=== PATIENT | female | born 1965 | race African-American/Black ===

== ENCOUNTER 2017-09-11 15:48 | Inpatient (IN) | payer OTHER ==
[2017-09-11 17:48] VITALS: BMI 28.0
--- NOTE | 2017-09-11 21:01 | HP ---
CIWA Score - CIWA Score Nausea/Vomitin (vomiting x 2) Muscle Tremors: 4-Moderate,w/Arms Extend Anxiety: 4-Mod. Anxious/Guarded Agitation: 3 Paroxysmal Sweats: 2 Orientation: 0-Oriented Tacttile Disturbances: 0-None Auditory Disturbances: 0-None Visual Disturbances: 0-None Headache: 2-Mild CIWA-Ar Total Score: 18 Admission ROS S - HPI Chief Complaint: Alcohol withdrawal symptoms Allergies/Adverse Reactions: Allergies Allergy/AdvReac Type Severity Reaction Status Date / Time fish derived [Fish derived] Allergy Mild Rash Verified 09/11/17 22:05 History of Present Illness: 52 years old female with a 12 years history of alcohol dependence is seeking admission to detox. Patient has been in previous detox and reports 5 years of sobriety. She has medical history of HIV+, HTN, GERD, asthma, herpes, anemia, right shoulder tendonitis and depression. She denies suicide attempt and suicidal ideation at this time. Exam Limitations: No Limitations - Ebola screening Have you traveled outside of the country in the last 21 days: No Have you had contact with anyone from an Ebola affected area: No Have you been sick,other than usual withdrawal symptoms: No Do you have a fever: No - Review of Systems Constitutional: Loss of Appetite, Malaise, Night Sweats EENT: reports: Blurred Vision Respiratory: reports: No Symptoms reported Cardiac: reports: No Symptoms Reported GI: reports: Diarrhea (x 3), Nausea, Poor Appetite, Poor Fluid Intake, Vomiting (x 2), Abdominal cramping : reports: No Symptoms Reported Musculoskeletal: reports: Joint Pain, Muscle Pain Integumentary: reports: Dryness, Flushing Neuro: reports: Headache, Tingling, Tremors Endocrine: reports: No Symptoms Reported Hematology: reports: Anemia Psychiatric: reports: Orientated x3, Anxious, Depressed Other Systems: Reviewed and Negative Patient History - Patient Medical History Hx Anemia: Yes (Not on medication) Hx Asthma: Yes (Not on medication) Hx Chronic Obstructive Pulmonary Disease (COPD): No Hx Cancer: No Hx Cardiac Disorders: No Hx Congestive Heart Failure: No Hx Hypertension: Yes (Lisinopril, HCTZ) Hx Hypercholesterolemia: No Hx Pacemaker: No HX Cerebrovascular Accident: No Hx Seizures: No Hx Dementia: No Hx Diabetes: No Hx Gastrointestinal Disorders: Yes (GERD - Not on medication) Hx Liver Disease: No Hx Genitourinary Disorders: No Hx Sexually Transmitted Disorders: Yes ( GENITAL HERPES) Hx Renal Disease (ESRD): No Hx Thyroid Disease: No Hx Human Immunodeficiency Virus (HIV): Yes (Since 1996 - [facility]) Hx Hepatitis C: No Hx Depression: Yes (Not on medication) Hx Suicide Attempt: No (Denies suicide attempt and suicidal ideation at this time) Hx Bipolar Disorder: No Hx Schizophrenia: No Other Medical History: Right shoulder tendonitis - Not on medication - Patient Surgical History Past Surgical History: No - PPD History Previous Implant?: Yes Documented Results: Negative w/o proof Implanted On Prior [facility] Admission?: Yes Date: 12/08/11 Results: 0MM PPD to be Administered?: Yes - Reproductive History Patient is a Female of Child Bearing Age (11 -55 yrs old): Yes Last Menstrual Period: 06/02/16 LMP comment: Menopausal Patient : No - Smoking Cessation Smoking history: Current every day smoker Have you smoked in the past 12 months: Yes Aproximately how many cigarettes per day: 4 Cigars Per Day: 0 Hx Chewing Tobacco Use: No Initiated information on smoking cessation: Yes 'Breaking Loose' booklet given: 09/11/17 - Substance & Tx. History Hx Alcohol Use: Yes Hx Substance Use: Yes Substance Use Type: Cocaine, Marijuana Hx Substance Use Treatment: Yes ([facility] 2012) - Substances Abused Alcohol Route: Oral Frequency: Daily Amount used: [place] - 1 Pint Age of first use: 18 Date of Last Use: 09/10/17 Cocaine Route: Smoking Frequency: Daily Amount used: $40 Age of first use: 20 Date of Last Use: 09/10/17 Marijuana/Hashish Route: Smoking Frequency: Daily Amount used: $10 Age of first use: 17 Date of Last Use: 09/10/17 Family Disease History - Family Disease History Family Disease History: Diabetes: Mother (ovarian Ca), Heart Disease: Father, Mother, Son, Daughter, CA: Mother Admission Physical Exam [facility] - Vital Signs Vital Signs: Vital Signs - 24 hr 09/11/17 17:46 Temperature 97.8 F Pulse Rate 100 H Respiratory 18 Rate Blood Pressure 125/92 - Physical General Appearance: Yes: Moderate Distress HEENTM: Yes: Normal ENT Inspection, Normal Voice, MAXIMILIANO, Other (missing upper and lower teeth) Respiratory: Yes: Lungs Clear, Normal Breath Sounds, No Respiratory Distress Neck: Yes: Supple Breast: Yes: Breast Exam Deferred Cardiology: Yes: Tachycardia Abdominal: Yes: Normal Bowel Sounds, Soft Genitourinary: Yes: Within Normal Limits Back: Yes: Normal Inspection Musculoskeletal: Yes: Joint Stiffness, Muscle Pain Extremities: Yes: Tremors Neurological: Yes: Alert, Normal Mood/Affect Integumentary: Yes: Dry Lymphatic: Yes: Within Normal Limits - Diagnostic (1) Alcohol dependence with withdrawal, uncomplicated Current Visit: Yes Status: Chronic (2) GERD (gastroesophageal reflux disease) Current Visit: Yes Status: Chronic (3) Anemia Current Visit: Yes Status: Chronic Qualifiers: Anemia type: iron deficiency (4) Tendonitis Current Visit: Yes Status: Chronic (5) Cocaine dependence Current Visit: Yes Status: Acute (6) Essential hypertension Current Visit: Yes Status: Chronic (7) Human immunodeficiency virus infection Current Visit: Yes Status: Chronic (8) depression Current Visit: Yes Status: Chronic (9) genital herpes Current Visit: Yes Status: Chronic (10) genital warts Current Visit: Yes Status: Chronic (11) Nicotine dependence Current Visit: Yes Status: Chronic Cleared for Admission [facility] - Detox or Rehab [facility] Level of Care: Medically Managed Detox Regimen/Protocol: Librium [facility] Breath Alcohol Content Breath Alcohol Content: 0 Urine Pregancy Test - Result Urine Test Results: Negative- NO Line Present Urine Drug Screen - Results Drug Screen Negative: No Urine Drug Screen Results: THC-Marijuana, BRYANT-Cocaine
[2017-09-11] MEDS ORDERED: P-EPHED 60MG/TRIPROLIDI 2.5MG TABLET PO PRN (21:20)
[2017-09-11] MEDS ORDERED: MAGNESIUM HYDROX 2400MG/30ML ORAL SUSPENSION 30 ML CUP PO PRN (21:20)
[2017-09-11] MEDS ORDERED: MAGNESIUM CITRATE 300 ML BOTTLE PO PRN (21:20)
[2017-09-11] MEDS ORDERED: NICOTINE POLACRILEX 2 MG GUM BC PRN (21:20)
[2017-09-11] MEDS ORDERED: ACETAMINOPHEN 325 MG TABLET (FP) PO PRN (21:20)
[2017-09-11] MEDS ORDERED: chlordiazePOXIDE HCL 25 MG CAPSULE PO PRN (21:20)
[2017-09-11] MEDS ORDERED: MENTHOL/PHENOL 1 EACH UD MM PRN (21:20)
[2017-09-11] MEDS ORDERED: IBUPROFEN 400 MG TABLET (FP) PO PRN (21:20)
[2017-09-11] MEDS ORDERED: LOPERAMIDE HCL 2 MG CAPSULE PO PRN (21:20)
[2017-09-11] MEDS ORDERED: MAG HYDROX/AL HYDROX/SIMETH 30 ML UNIT-DOSE CUP PO PRN (21:20)
[2017-09-11] MEDS ORDERED: guaiFENesin/D-METHORPHAN HB 10 ML UNIT-DOSE CUPS PO PRN (21:20)
[2017-09-11] MEDS ORDERED: MELATONIN 5 MG TABLETS PO PRN (22:00)
[2017-09-11] MEDS: chlordiazePOXIDE HCL 25 MG CAPSULE PO SCH (23:08)
[2017-09-11] MEDS: THIAMINE HCL 100 MG TABLET (FP) PO SCH (23:08)
[2017-09-12 05:16] LABS: URINE APPEARANCE TURBID; URINE COLOR YELLOW; URINE GLUCOSE (UA) NEGATIVE (NEGATIVE); URINE KETONE NEGATIVE (NEGATIVE); URINE NITRITE NEGATIVE (NEGATIVE)
[2017-09-12 05:27] LABS: URINE LEUK ESTERASE 2+ (NEGATIVE); URINE PROTEIN 1+ (NEGATIVE)
[2017-09-12 05:34] LABS: EPI CELLS RARE /HPF (FEW); URINE MUCUS MANY
[2017-09-12] MEDS: chlordiazePOXIDE HCL 25 MG CAPSULE PO SCH ×4 (06:00→22:33)
--- NOTE | 2017-09-12 09:43 | PN ---
S CIWA - CIWA Score Nausea/Vomitin Muscle Tremors: 3 Anxiety: 3 Agitation: 2 Paroxysmal Sweats: 1-Minimal Palms Moist Orientation: 0-Oriented Tacttile Disturbances: 1-Very Mild Itch/Numbness Auditory Disturbances: 1-Very Mild Visual Disturbances: 0-None Headache: 2-Mild CIWA-Ar Total Score: 16 BHS Progress Note (SOAP) Subjective: ALERT,IRRITABLE,ANXIOUS,INTERRUPTED SLEEP,TREMOR Objective: 09/12/17 09:39 Vital Signs Temperature 98.1 F 09/12/17 09:23 Pulse Rate 72 09/12/17 09:23 Respiratory Rate 18 09/12/17 09:23 Blood Pressure 137/78 09/12/17 09:23 O2 Sat by Pulse Oximetry (%) EKG NSR,LVH,PROLONG QT 404/454 NO CHEST PAIN,NO SOB,NO DIZZINESS Laboratory Last Values Urine Color Yellow 09/11/17 23:55 Urine Appearance Turbid 09/11/17 23:55 Urine pH 5.0 (5.0-8.0) D 09/11/17 23:55 Ur Specific [place] 1.040 (1.001-1.035) H 09/11/17 23:55 Urine Protein 1+ (NEGATIVE) H 09/11/17 23:55 Urine Glucose (UA) Negative (NEGATIVE) 09/11/17 23:55 Urine Ketones Negative (NEGATIVE) 09/11/17 23:55 Urine Blood Negative (NEGATIVE) 09/11/17 23:55 Urine Nitrite Negative (NEGATIVE) 09/11/17 23:55 Urine Bilirubin 2.0 (<2.0 mg/dL) 09/11/17 23:55 Urine Urobilinogen 2.0 mg/dL (0.2-1.0) H 09/11/17 23:55 Ur Leukocyte Esterase 2+ (NEGATIVE) H 09/11/17 23:55 Urine WBC (Auto) 129 /hpf (3-5) 09/11/17 23:55 Urine RBC (Auto) 6 /hpf (0-3) 09/11/17 23:55 Ur Epithelial Cells Rare /HPF (FEW) 09/11/17 23:55 Urine Mucus Many 09/11/17 23:55 LABS PENDING Assessment: 09/12/17 09:41 WITHDRAWAL SYMPTOM Plan: CONTINUE DETOX,REPEAT UA AND URINE FOR C/S R/O UTI,STARTED ON BACTRIM DS 1 TAB PO BID, ENCOURAGE ORAL FLUID
[2017-09-12 09:46] LABS: HEMATOCRIT 37.7 % (32.4-45.2); HEMOGLOBIN 12.6 GM/dL (10.7-15.3); MCH 30.6 pg (25.7-33.7); MCHC 33.4 g/dl (32.0-36.0); MEAN CELL VOLUME 91.7 fl (80-96); MEAN PLT VOLUME 9.8 fl (7.5-11.1); PLATELET COUNT 151 K/MM3 (134-434); RBC 4.11 M/mm3 (3.60-5.2); RDW 14.1 % (11.6-15.6); WHITE BLOOD COUNT 3.4 K/mm3 (4.0-10.0)
[2017-09-12 10:40] LABS: ALBUMIN 3.2 g/dl (3.4-5.0); ANION GAP 8 (8-16); BLOOD UREA NITROGEN 27 mg/dL (7-18); CALCIUM 8.3 mg/dL (8.5-10.1); CHLORIDE 111 mmol/L (98-107); CO2 26 mmol/L (21-32); GLUCOSE,RANDOM 95 mg/dL (74-106); POTASSIUM 4.3 mmol/L (3.5-5.1); SODIUM 145 mmol/L (136-145)
[2017-09-12 10:44] LABS: ALK PHOS 70 U/L (45-117); BILIRUBIN,TOTAL 0.4 mg/dL (0.2-1.0); CREATININE 1.1 mg/dL (0.55-1.02); SGOT/AST 24 U/L (15-37); SGPT/ALT 18 U/L (12-78); TOT PROT 6.6 g/dl (6.4-8.2)
[2017-09-12] MEDS: NICOTINE 14 MG/24 HOURS TOPICAL PATCH TD SCH (10:44)
[2017-09-12] MEDS: PRENATAL VITAMINS W/ FOLIC ACID TABLET (FP) PO SCH (10:45)
[2017-09-12] MEDS: SULFAMETHOXAZOLE/TRIMETHOPRIM 800MG/160MG D.S. TABLET PO SCH ×2 (10:45→22:33)
[2017-09-12] MEDS: valACYclovir HCL 500 MG TABLET (FP) PO SCH (10:47)
--- NOTE | 2017-09-12 11:30 | EKG ---
Test Reason : Blood Pressure : / mmHG Vent. Rate : 076 BPM Atrial Rate : 076 BPM P-R Int : 146 ms QRS Dur : 076 ms QT Int : 404 ms P-R-T Axes : 064 067 073 degrees QTc Int : 454 ms NORMAL SINUS RHYTHM MINIMAL VOLTAGE CRITERIA FOR LVH, MAY BE NORMAL VARIANT BORDERLINE ECG NO PREVIOUS ECGS AVAILABLE Confirmed by ADA NETTLES MD ([id number]) on 09/12/2017 11:29:42 AM Referred By: Confirmed By:ADA NETTLES MD
--- NOTE | 2017-09-12 16:12 | CONSULT ---
[facility] Psychiatric Consult - Data Date of interview: 09/12/17 Admission source: [facility] Identifying data: Patient is a 52 year old single female, mother of eleven, receiving financial and housing support through [facility]. This is patient's first admission to rehab. Patient admitted to for alcohol, cocaine, and cannabis dependence. Substance Abuse History: Following information confirmed with Mr. Coker: Smoking Cessation. Smoking history: Current every day smoker. Have you smoked in the past 12 months: Yes. Aproximately how many cigarettes per day: 4. Cigars Per Day: 0. Hx Chewing Tobacco Use: No. Initiated information on smoking cessation: Yes. 'Breaking Loose' booklet given: 09/11/17. - Substance & Tx. History. Hx Alcohol Use: Yes. Hx Substance Use: Yes. Substance Use Type : Cocaine, Marijuana. Hx Substance Use Treatment: Yes ([facility] 2012). - Substances Abused. Alcohol. Route: Oral. Frequency: Daily. Amount used: Jose Alberto - 1 Pint. Age of first use: 18. Date of Last Use: 09/10/17. Cocaine. Route: Smoking. Frequency: Daily. Amount used: $40. Age of first use: 20. Date of Last Use: 09/10/17. Marijuana/Hashish. Route: Smoking. Frequency: Daily. Amount used: $10. Age of first use: 17. Date of Last Use: 09/10/17 Medical History: Anemia, Asthma, hypertension, GERD, HIV since 1996 Psychiatric History: Patient denies h/o psychiatric hospitalization, outpatient care, and suicide attempt. Patient see's a therapist/social media coordinator but denies psychiatric treatment. Physical/Sexual Abuse/Trauma History: Denies. Mental Status Exam - Mental Status Exam Alert and Oriented to: Time, Place, Person Cognitive Function: Good Patient Appearance: Well Groomed Mood: Withdrawn, Euthymic Affect: Mood Congruent Patient Behavior: Fatigued, Cooperative Speech Pattern: Appropriate Voice Loudness: Normal Thought Process: Goal Oriented Thought Disorder: Not Present Hallucinations: Denies Suicidal Ideation: Denies Homicidal Ideation: Denies Insight/Judgement: Poor Sleep: Fair Appetite: Fair Muscle strength/Tone: Normal Gait/Station: Other (Did not observe patient's gait.) Psychiatric Findings - Problem List ([place] 1, 2,3) (1) Cocaine dependence Current Visit: Yes Status: Acute (2) Alcohol dependence with withdrawal, uncomplicated Current Visit: Yes Status: Acute (3) Nicotine dependence Current Visit: Yes Status: Chronic - Initial Treatment Plan Initial Treatment Plan: Psychoeducation provided. Detoxification in progress. Observation.
[2017-09-12] MEDS: THIAMINE HCL 100 MG TABLET (FP) PO SCH (22:33)
[2017-09-13] MEDS ORDERED: HYDROCHLOROTHIAZIDE 12.5 MG CAPSULE (FP) PO ONE (07:27)
[2017-09-13] MEDS ORDERED: RITONAVIR 100 MG TABLET PO SCH (08:00)
[2017-09-13] MEDS ORDERED: ATAZANAVIR SO4 300 MG CAPSULE PO SCH (08:00)
[2017-09-13] MEDS ORDERED: LISINOPRIL 10 MG TABLET (FP) PO SCH (10:00)
[2017-09-13] MEDS ORDERED: HYDROCHLOROTHIAZIDE 25 MG TABLET (FP) PO SCH (10:00)
[2017-09-13] MEDS ORDERED: LISINOPRIL 20 MG TABLET (FP) PO ONE (10:45)
[2017-09-13] MEDS: chlordiazePOXIDE HCL 25 MG CAPSULE PO SCH ×2 (10:47→10:57)
[2017-09-13] MEDS: valACYclovir HCL 500 MG TABLET (FP) PO SCH (10:53)
[2017-09-13] MEDS: SULFAMETHOXAZOLE/TRIMETHOPRIM 800MG/160MG D.S. TABLET PO SCH (10:54)
[2017-09-13] MEDS: PRENATAL VITAMINS W/ FOLIC ACID TABLET (FP) PO SCH (10:55)
[2017-09-13] MEDS: NICOTINE 14 MG/24 HOURS TOPICAL PATCH TD SCH (10:57)
--- NOTE | 2017-09-13 12:26 | PN ---
S CIWA - CIWA Score Nausea/Vomitin Muscle Tremors: 3 Anxiety: 3 Agitation: 2 Paroxysmal Sweats: 1-Minimal Palms Moist Orientation: 0-Oriented Tacttile Disturbances: 1-Very Mild Itch/Numbness Auditory Disturbances: 1-Very Mild Visual Disturbances: 0-None Headache: 2-Mild CIWA-Ar Total Score: 16 BHS Progress Note (SOAP) Subjective: ALERT,IRRITABLE,ANXIOUS,INTERRUPTED SLEEP,PAIN IN THE BODY Objective: 09/13/17 12:24 Vital Signs Temperature 98.1 F 09/13/17 10:16 Pulse Rate 90 09/13/17 10:16 Respiratory Rate 20 09/13/17 10:16 Blood Pressure 140/94 09/13/17 10:16 O2 Sat by Pulse Oximetry (%) Laboratory Last Values WBC 3.4 K/mm3 (4.0-10.0) L D 09/12/17 07:30 RBC 4.11 M/mm3 (3.60-5.2) 09/12/17 07:30 Hgb 12.6 GM/dL (10.7-15.3) 09/12/17 07:30 Hct 37.7 % (32.4-45.2) 09/12/17 07:30 MCV 91.7 fl (80-96) 09/12/17 07:30 MCH 30.6 pg (25.7-33.7) 09/12/17 07:30 MCHC 33.4 g/dl (32.0-36.0) 09/12/17 07:30 RDW 14.1 % (11.6-15.6) 09/12/17 07:30 Plt Count 151 K/MM3 (134-434) D 09/12/17 07:30 MPV 9.8 fl (7.5-11.1) 09/12/17 07:30 Sodium 145 mmol/L (136-145) 09/12/17 07:30 Potassium 4.3 mmol/L (3.5-5.1) 09/12/17 07:30 Chloride 111 mmol/L (98-107) H 09/12/17 07:30 Carbon Dioxide 26 mmol/L (21-32) 09/12/17 07:30 Anion Gap 8 (8-16) 09/12/17 07:30 BUN 27 mg/dL (7-18) H 09/12/17 07:30 Creatinine 1.1 mg/dL (0.55-1.02) H 09/12/17 07:30 Creat Clearance w eGFR 51.96 (>60) 09/12/17 07:30 Random Glucose 95 mg/dL (74-106) 09/12/17 07:30 Calcium 8.3 mg/dL (8.5-10.1) L 09/12/17 07:30 Total Bilirubin 0.4 mg/dL (0.2-1.0) 09/12/17 07:30 AST 24 U/L (15-37) 09/12/17 07:30 ALT 18 U/L (12-78) 09/12/17 07:30 Alkaline Phosphatase 70 U/L (45-117) 09/12/17 07:30 Total Protein 6.6 g/dl (6.4-8.2) 09/12/17 07:30 Albumin 3.2 g/dl (3.4-5.0) L 09/12/17 07:30 Urine Color Yellow 09/11/17 23:55 Urine Appearance Turbid 09/11/17 23:55 Urine pH 5.0 (5.0-8.0) D 09/11/17 23:55 Ur Specific [place] 1.040 (1.001-1.035) H 09/11/17 23:55 Urine Protein 1+ (NEGATIVE) H 09/11/17 23:55 Urine Glucose (UA) Negative (NEGATIVE) 09/11/17 23:55 Urine Ketones Negative (NEGATIVE) 09/11/17 23:55 Urine Blood Negative (NEGATIVE) 09/11/17 23:55 Urine Nitrite Negative (NEGATIVE) 09/11/17 23:55 Urine Bilirubin 2.0 (<2.0 mg/dL) 09/11/17 23:55 Urine Urobilinogen 2.0 mg/dL (0.2-1.0) H 09/11/17 23:55 Ur Leukocyte Esterase 2+ (NEGATIVE) H 09/11/17 23:55 Urine WBC (Auto) 129 /hpf (3-5) 09/11/17 23:55 Urine RBC (Auto) 6 /hpf (0-3) 09/11/17 23:55 Ur Epithelial Cells Rare /HPF (FEW) 09/11/17 23:55 Urine Mucus Many 09/11/17 23:55 RPR Titer Nonreactive (NONREACTIVE) 09/12/17 07:30 Assessment: 09/13/17 12:25 WITHDRAWAL SYMPTOM Plan: CONTINUE DETOX,CLONIDINE 0.1 MG PO NOW ,BP MONITORING
[2017-09-13] MEDS ORDERED: cloNIDine HCL 0.1 MG TABLET PO ONE (13:00)
--- NOTE | 2017-09-13 17:05 | DS ---
[facility] Detox Discharge Summary Admission Date: 09/11/17 Discharge Date: 09/13/17 (Against Medical Advice) - History Present History: Alcohol Dependence, Cocaine Dependence - Physical Exam Results Vital Signs: Vital Signs Temperature 98.1 F 09/13/17 14:10 Pulse Rate 88 09/13/17 14:10 Respiratory Rate 16 09/13/17 14:10 Blood Pressure 153/93 09/13/17 14:10 O2 Sat by Pulse Oximetry (%) Pertinent Admission Physical Exam Findings: Admitted for alcohol and cocaine detox and tolerated detox protocol. Laboratory Last Values WBC 3.4 K/mm3 (4.0-10.0) L D 09/12/17 07:30 RBC 4.11 M/mm3 (3.60-5.2) 09/12/17 07:30 Hgb 12.6 GM/dL (10.7-15.3) 09/12/17 07:30 Hct 37.7 % (32.4-45.2) 09/12/17 07:30 MCV 91.7 fl (80-96) 09/12/17 07:30 MCH 30.6 pg (25.7-33.7) 09/12/17 07:30 MCHC 33.4 g/dl (32.0-36.0) 09/12/17 07:30 RDW 14.1 % (11.6-15.6) 09/12/17 07:30 Plt Count 151 K/MM3 (134-434) D 09/12/17 07:30 MPV 9.8 fl (7.5-11.1) 09/12/17 07:30 Sodium 145 mmol/L (136-145) 09/12/17 07:30 Potassium 4.3 mmol/L (3.5-5.1) 09/12/17 07:30 Chloride 111 mmol/L (98-107) H 09/12/17 07:30 Carbon Dioxide 26 mmol/L (21-32) 09/12/17 07:30 Anion Gap 8 (8-16) 09/12/17 07:30 BUN 27 mg/dL (7-18) H 09/12/17 07:30 Creatinine 1.1 mg/dL (0.55-1.02) H 09/12/17 07:30 Creat Clearance w eGFR 51.96 (>60) 09/12/17 07:30 Random Glucose 95 mg/dL (74-106) 09/12/17 07:30 Calcium 8.3 mg/dL (8.5-10.1) L 09/12/17 07:30 Total Bilirubin 0.4 mg/dL (0.2-1.0) 09/12/17 07:30 AST 24 U/L (15-37) 09/12/17 07:30 ALT 18 U/L (12-78) 09/12/17 07:30 Alkaline Phosphatase 70 U/L (45-117) 09/12/17 07:30 Total Protein 6.6 g/dl (6.4-8.2) 09/12/17 07:30 Albumin 3.2 g/dl (3.4-5.0) L 09/12/17 07:30 Urine Color Yellow 09/11/17 23:55 Urine Appearance Turbid 09/11/17 23:55 Urine pH 5.0 (5.0-8.0) D 09/11/17 23:55 Ur Specific [place] 1.040 (1.001-1.035) H 09/11/17 23:55 Urine Protein 1+ (NEGATIVE) H 09/11/17 23:55 Urine Glucose (UA) Negative (NEGATIVE) 09/11/17 23:55 Urine Ketones Negative (NEGATIVE) 09/11/17 23:55 Urine Blood Negative (NEGATIVE) 09/11/17 23:55 Urine Nitrite Negative (NEGATIVE) 09/11/17 23:55 Urine Bilirubin 2.0 (<2.0 mg/dL) 09/11/17 23:55 Urine Urobilinogen 2.0 mg/dL (0.2-1.0) H 09/11/17 23:55 Ur Leukocyte Esterase 2+ (NEGATIVE) H 09/11/17 23:55 Urine WBC (Auto) 129 /hpf (3-5) 09/11/17 23:55 Urine RBC (Auto) 6 /hpf (0-3) 09/11/17 23:55 Ur Epithelial Cells Rare /HPF (FEW) 09/11/17 23:55 Urine Mucus Many 09/11/17 23:55 RPR Titer Nonreactive (NONREACTIVE) 09/12/17 07:30 A&Ox3. No indications of withdrawal symptoms. States leaving for personal reasons. Discussed potential for relapse and overdose risk potential. Verbalizes an understanding and states will be going to another facility on Saturday. - Treatment Hospital Course: Detox Protocol Followed (Admitted w/ alcohol and cocaine withdrawal. Tolerated detox protocol however, did not complete protocol. Leaving against medical advice.) - Medication Discharge Medications: Ambulatory Orders Emtricitabine/Tenofovir [Truvada] 1 tab PO HS 12/06/11 Valacyclovir HCl [Valtrex] 1,000 mg PO DAILY 12/06/11 Atazanavir [Reyataz] 300 mg PO DAILY 09/08/12 Ritonavir [Norvir] 100 mg PO DAILY 09/08/12 Hydrochlorothiazide 25 mg PO DAILY 09/11/17 Lisinopril 10 mg PO DAILY 09/11/17 - Diagnosis (1) Cocaine dependence Current Visit: Yes Status: Chronic (2) Essential hypertension Current Visit: Yes Status: Chronic (3) Nicotine dependence Current Visit: Yes Status: Chronic (4) Alcohol dependence Current Visit: No Status: Chronic (5) Human immunodeficiency virus infection Current Visit: Yes Status: Chronic - AMA Did Patient Leave Against Medical Advice: Yes (States has personal reasons. Will continue own home medications.)
[2017-09-13 17:26] VITALS: BP 140/92; PULSE 111; TEMP 98.2
[2017-09-13 18:27] LABS: URINE APPEARANCE SLCLOUDY; URINE BILIRUBIN NEGATIVE (<2.0 mg/dL); URINE COLOR YELLOW; URINE GLUCOSE (UA) NEGATIVE (NEGATIVE); URINE KETONE NEGATIVE (NEGATIVE); URINE NITRITE NEGATIVE (NEGATIVE); URINE PROTEIN NEGATIVE (NEGATIVE); URINE UROBILINOGEN NEGATIVE mg/dL (0.2-1.0)
[2017-09-13 18:46] LABS: URINE LEUK ESTERASE 2+ (NEGATIVE)
[2017-09-13 18:49] LABS: EPI CELLS RARE /HPF (FEW); URINE BACTERIA RARE /hpf (NONE SEEN); URINE MUCUS RARE
[2017-09-13] MEDS ORDERED: EMTRICITABINE 200MG/TENOFOVIR 300MG PO SCH (22:00)
[2017-09-13] MEDS ORDERED: chlordiazePOXIDE 5 MG CAPSULE PO SCH (23:00)
[2017-09-14] MEDS ORDERED: LISINOPRIL 10 MG TABLET (FP) PO SCH (10:00)
[2017-09-14] MEDS ORDERED: chlordiazePOXIDE HCL 10 MG CAPSULE PO SCH (23:00)
== END 2017-09-13 17:20 | disposition left against medical advice (07) | DRG 770 ==
LOC: YASAS 15:48 → Y6N 21:41
PROVIDERS: ADMIT Internal Medicine; ATTEND Internal Medicine
PROC: HZ2ZZZZ Detoxification Services for Substance Abuse Treatment (ICD-10-PCS; principal; 2017-09-11)
DX: F10.20 Alcohol dependence, uncomplicated (principal); F14.20 Cocaine dependence, uncomplicated; F17.210 Nicotine dependence, cigarettes, uncomplicated; I10 Essential (primary) hypertension; K21.9 Gastro-esophageal reflux disease without esophagitis; Z86.19 Personal history of other infectious and parasitic diseases; Z21 Asymptomatic human immunodeficiency virus [HIV] infection status
CPT/HCPCS: 36415; 80053; 81003; 81015; 85027; 86593; 93005; 93010; J0735